=== PATIENT | female | born 1960 | race Caucasian/White ===

== ENCOUNTER 2016-12-09 13:06 | Day surgery (SDC) | payer OTHER ==
[~2016-12-09] VITALS: Ht 165.1 cm; Wt 62.3 kg
[2016-12-09 13:44] VITALS: Ht 165.1 cm; Wt 62.3 kg
[2016-12-09 13:57] VITALS: BP 114/59; PULSE 64; RESP 9
[2016-12-09] MEDS ORDERED: LIDOCAINE 2% (SDV) 5 ML INJ ONE (16:04)
[2016-12-09] MEDS ORDERED: PROPOFOL 40 ML ONE (16:04)
--- NOTE | 2016-12-09 16:39 | OPPN ---
Date/Time of Note Date/Time of Note DATE: 12/09/16 TIME: 16:35 Proc Note GI Free Text/Dictation Procedure Date: 12/09/2016 Preoperative Diagnosis: Dyspepsia/abdominal pain Postoperative Diagnosis: * Moderate distal esophagitis * Small 5 mm nodule distal esophagus. Biopsies * Moderate gastritis. Rule out H. pylori infection. Biopsies obtained Plan: * PPI therapy * Review pathology * Follow-up as previously scheduled Operation Performed: EGD with biopsies Surgeon: Clifford Loya MD Transferrer: None Second Furnace Erector: None Anesthesiologist: Monitored anesthesia care by Dr. Shahid Touralfa Time: NA Estimated Blood Loss: None Transfusion Required: No Specimens: * Body and antrum of the stomach * Esophageal nodule Grafts/Implants: None Tubes/Drains: NA Complications: None Pt. Condition Post Procedure: Stable Disposition: Home After informed consent, with the patient/relatives understanding the procedure, its indications, potential risks and complications, including but not limited to : allergic reaction, bleeding, perforation or infection, and after all pertinent questions were answered to the patients satisfaction, the patient/ relatives signed witnessed informed consent. Following this, premedication was administered slowly IV push under careful cardiovascular and respiratory monitoring with pulse oximetry, automatic blood pressure, and clinical research monitor. Once the sedative effect was achieved the patient was place in the left lateral decubitus, the panendoscope was introduced and advanced under visual control. Careful examination of the upper gastrointestinal tract, both on insertion as well as withdrawal of the instrument disclosing the following findings: Esophagus: the mucosa of the entire esophagus was carefully examined and showed the following findings: There is moderate erythema and edema of the mucosa distal esophagus. A 5 mm nodule is noted. Biopsies were obtained. Otherwise the mucosa appears within normal limits. There is no evidence of varices, neoplasm, or stricture. No Hiatal Hernia identified.] Stomach: Upon entrance to the stomach air was insufflated, the gastric anthony distended normally. The mucosa of the fundus, body and antrum of the stomach was carefully examined both head-on and on retroflexion, and showed the following findings: There is moderate erythema and edema of the mucosa of the body and antrum of the stomach. Biopsies were obtained to rule out H. pylori infection. Otherwise the mucosa appears within normal limits with no abnormalities. There is no evidence of ulcers or neoplasm.] Pylorus: The pylorus was carefully examined and showed the following findings: [ the pylorus appears patent and within normal limits, with no evidence of gastric outlet obstruction.] Duodenum: The duodenal mucosa was carefully examined in the duodenal bulb as well as the second portion of the duodenum and showed the following findings: [ the mucosa appears unremarkable with no evidence of duodenitis, ulcer or neoplasm.] Procedure date: Dec 09, 2016 CLIFFORD LOYA MD Dec 09, 2016 16:39
[2016-12-09 17:06] VITALS: BP 102/62; PULSE 63; RESP 18
== END 2016-12-09 17:27 | disposition home or self-care (01) ==
LOC: GIL 13:06
PROVIDERS: ATTEND Internal Medicine Gastroenterology
DX: K29.50 Unspecified chronic gastritis without bleeding (principal); K20.8 Other esophagitis
CPT/HCPCS: 43239; Z7610